=== PATIENT | female | born 1935 | race Caucasian/White ===

== ENCOUNTER 2022-06-29 23:36 | Inpatient (IN) | payer MEDICARE, MEDICAID ==
[~2022-06-29] VITALS: Ht 160 cm; Wt 68.5 kg
[~2022-06-29 23:36] MED LIST: AMLO5TAB4 MT; ASPI-1497 MT; AZIT500T8 MT; FURO-152 MT; LEVO25TA2 MT; OLME20TA22 MT
[2022-06-30 01:05] LABS: BASOPHILS % 0.4 % (0.0-2.0); EOSINOPHILS % 8.2 % (0.0-5.0); HEMATOCRIT. 30.5 % (36.0-48.0); HEMOGLOBIN. 10.1 g/dL (12.0-16.0); LYMPHOCYTES % 18.2 % (20.0-50.0); MEAN CORPUSCULAR VOLUME 90.9 fL (81.0-99.0); MEAN PLATELET VOLUME 6.7 fl (7.4-10.4); MONOCYTES % 8.7 % (2.0-8.0); NEUTROPHILS % 64.5 % (40.0-76.0); PLATELET 344 x1000/uL (130-400); RED BLOOD CELL COUNT 3.36 mill/uL (4.2-5.4); RED CELL DISTRIBUTION WIDTH 14.8 % (11.6-14.6)
[2022-06-30 01:09] LABS: CHLORIDE 97 mEq/L (98-107)
[2022-06-30] MEDS ORDERED: SODIUM CHLORIDE 0.9% 1,000 ML IV ONE (02:15)
[2022-06-30] MEDS ORDERED: PIPERACILLIN/TAZ 3.375G PREMIX 50 ML IV ONE (02:15)
[2022-06-30] MEDS ORDERED: VANCOMYCIN 1G PREMIX 200 ML IV ONE (02:15)
[2022-06-30] MEDS ORDERED: ONDANSETRON HCL 4MG/2ML INJ IV PRN (02:45)
[2022-06-30] MEDS ORDERED: CLONIDINE 0.1MG TABLET PO PRN (02:45)
[2022-06-30] MEDS ORDERED: GUAIFENESIN 200MG/10ML SUGAR FREE UDC PO PRN (02:45)
[2022-06-30] MEDS ORDERED: ACETAMINOPHEN 325MG TABLET PO PRN (02:45)
[2022-06-30] MEDS ORDERED: DEXT 5%/0.45% NACL 1000ML 1,000 ML IV SCH (02:45)
[2022-06-30] MEDS ORDERED: IOHEXOL-350 100 ML BOTTLE ONE (06:01)
[2022-06-30] MEDS: LEVOTHYROXINE SODIUM 25MCG TABLET PO SCH (06:30)
[2022-06-30] MEDS: OMEPRAZOLE 20MG CAPSULE EXTENDED RELEASE PO SCH (06:30)
[2022-06-30 08:32] LABS: CREATINE KINASE MB FRACTION 1.2 ng/mL (0.5-3.6)
[2022-06-30] MEDS ORDERED: IPRATROPIUM/ALBUTEROL 0.5-3(2.5)MG/3ML NEB HHN PRN (10:15)
[2022-06-30] MEDS ORDERED: GUAIFENESIN-DM 200MG-20MG/10ML UDC PO PRN (10:15)
[2022-06-30 10:30] VITALS: BP 141/72
[2022-06-30] MEDS: AMLODIPINE 5MG TABLET PO SCH (11:28)
[2022-06-30] MEDS: FUROSEMIDE 40MG/4ML VIAL IVP SCH (11:28)
[2022-06-30] MEDS: HYDRALAZINE HCL 25MG TABLET PO SCH ×3 (14:00→21:15)
[2022-06-30 16:00] VITALS: BP 146/60
[2022-06-30 17:26] LABS: CREATINE KINASE MB FRACTION 1.2 ng/mL (0.5-3.6)
[2022-06-30 20:00] VITALS: BP 148/63
[2022-06-30] MEDS: IPRATROPIUM/ALBUTEROL 0.5-3(2.5)MG/3ML NEB HHN SCH (20:27)
[2022-06-30] MEDS: BUDESONIDE 0.5MG/2ML NEB HHN SCH (20:27)
[2022-06-30] MEDS: ATORVASTATIN CALCIUM 20MG TABLET PO SCH (21:14)
[2022-07-01] VITALS: BP 126/44
[2022-07-01 04:00] VITALS: BP 119/51
[2022-07-01] MEDS: LEVOTHYROXINE SODIUM 25MCG TABLET PO SCH (05:54)
[2022-07-01] MEDS: OMEPRAZOLE 20MG CAPSULE EXTENDED RELEASE PO SCH (05:54)
[2022-07-01] MEDS: HYDRALAZINE HCL 25MG TABLET PO SCH ×3 (05:54→21:24)
[2022-07-01 06:49] LABS: BASOPHILS % 0.2 % (0.0-2.0); EOSINOPHILS % 5.9 % (0.0-5.0); HEMATOCRIT. 29.2 % (36.0-48.0); HEMOGLOBIN. 9.9 g/dL (12.0-16.0); LYMPHOCYTES % 10.7 % (20.0-50.0); MEAN CORPUSCULAR HEMOGLOBIN 30.6 pg (28.0-32.0); MEAN CORPUSCULAR VOLUME 90.7 fL (81.0-99.0); MEAN PLATELET VOLUME 6.8 fl (7.4-10.4); MONOCYTES % 10.1 % (2.0-8.0); NEUTROPHILS % 73.1 % (40.0-76.0); PLATELET 343 x1000/uL (130-400); RED BLOOD CELL COUNT 3.22 mill/uL (4.2-5.4); RED CELL DISTRIBUTION WIDTH 14.6 % (11.6-14.6)
[2022-07-01 07:33] LABS: PHOSPHORUS 4.4 mg/dL (2.5-4.9)
[2022-07-01 07:49] LABS: BG BASE EXCESS 10.8 mmol/L (-2.0-2.0); BG CARBOXYHEMOGLOBIN 0.3 % (0.5-1.5); BG DEOXYHEMOGLOBIN 5.8 % (0.0-5.0); BG METHEMOGLOBIN 0.3 % (0.0-1.5); BG OXYGEN SATURATION 94.2 % (92.0-98.5); BG OXYHEMOGLOBIN 93.6 % (94.0-97.0); BG PCO2 57.4 mmHg (35.0-45.0); BG PH 7.427 (7.350-7.450); BG PO2 73.5 mmHg (75.0-100.0); BG SAMPLE SITE RIGHT BRACHIAL; BG TOTAL HEMOGLOBIN 11.1 g/dL (12.0-18.0); BG VENT MODE NASAL CANNULA
[2022-07-01] MEDS: BUDESONIDE 0.5MG/2ML NEB HHN SCH ×2 (07:49→21:37)
[2022-07-01] MEDS: IPRATROPIUM/ALBUTEROL 0.5-3(2.5)MG/3ML NEB HHN SCH ×2 (07:50→21:37)
[2022-07-01 08:00] VITALS: BP 113/53
[2022-07-01] MEDS: FUROSEMIDE 40MG/4ML VIAL IVP SCH (09:11)
[2022-07-01] MEDS: AMLODIPINE 5MG TABLET PO SCH (09:11)
[2022-07-01 12:00] VITALS: BP 116/50
[2022-07-01 12:52] LABS: T4 FREE 0.9 ng/dL (0.76-1.46)
[2022-07-01 16:00] VITALS: BP 114/50
[2022-07-01 20:00] VITALS: BP 140/43
[2022-07-01] MEDS: ATORVASTATIN CALCIUM 20MG TABLET PO SCH (21:20)
[2022-07-02] VITALS: BP 112/40
[2022-07-02 04:00] VITALS: BP_SYST 120; BP_SYST 140; BP_DIAS 42; BP_DIAS 43
[2022-07-02] MEDS: LEVOTHYROXINE SODIUM 25MCG TABLET PO SCH (05:53)
[2022-07-02] MEDS: HYDRALAZINE HCL 25MG TABLET PO SCH ×3 (05:53→21:55)
[2022-07-02 08:00] VITALS: BP 101/68
[2022-07-02] MEDS: AMLODIPINE 5MG TABLET PO SCH (09:00)
[2022-07-02] MEDS: BUDESONIDE 0.5MG/2ML NEB HHN SCH ×2 (09:28→21:21)
[2022-07-02] MEDS: IPRATROPIUM/ALBUTEROL 0.5-3(2.5)MG/3ML NEB HHN SCH ×2 (09:28→21:21)
[2022-07-02] MEDS: FAMOTIDINE 20MG TABLET PO SCH (10:03)
[2022-07-02] MEDS: FUROSEMIDE 40MG/4ML VIAL IVP SCH (10:04)
[2022-07-02 12:00] VITALS: BP 140/53
[2022-07-02 16:00] VITALS: BP 96/41
[2022-07-02] MEDS ORDERED: FURO40TA5 MT ×2 (18:21→18:28)
[2022-07-02 18:33] VITALS: BP 96/41
[2022-07-02] MEDS: ATORVASTATIN CALCIUM 20MG TABLET PO SCH (20:58)
[2022-07-03] VITALS: BP 125/50
[2022-07-03 04:00] VITALS: BP 120/53
[2022-07-03] MEDS: LEVOTHYROXINE SODIUM 25MCG TABLET PO SCH (06:21)
[2022-07-03] MEDS: HYDRALAZINE HCL 25MG TABLET PO SCH (06:21)
[2022-07-03 08:00] VITALS: BP 122/65
[2022-07-03] MEDS: IPRATROPIUM/ALBUTEROL 0.5-3(2.5)MG/3ML NEB HHN SCH (08:06)
[2022-07-03] MEDS: BUDESONIDE 0.5MG/2ML NEB HHN SCH (08:07)
[2022-07-03] MEDS: FAMOTIDINE 20MG TABLET PO SCH (09:29)
[2022-07-03] MEDS: AMLODIPINE 5MG TABLET PO SCH (09:33)
[2022-07-03] MEDS: FUROSEMIDE 40MG/4ML VIAL IVP SCH (09:33)
== END 2022-07-03 12:15 | DRG 193 ==
LOC: ER 23:36 → MICUSO 06-30 02:30 → 7EST 06-30 11:01
PROVIDERS: ADMIT Internal Medicine Nephrology; ATTEND Internal Medicine Nephrology
DX: J18.9 Pneumonia, unspecified organism (principal); I50.31 Acute diastolic (congestive) heart failure; I13.0 Hypertensive heart and chronic kidney disease with heart failure and stage 1 through stage 4 chronic kidney disease, or unspecified chronic kidney disease; J44.0 Chronic obstructive pulmonary disease with (acute) lower respiratory infection; N18.9 Chronic kidney disease, unspecified; E78.5 Hyperlipidemia, unspecified; E03.9 Hypothyroidism, unspecified; Z20.822 Contact with and (suspected) exposure to COVID-19; I07.1 Rheumatic tricuspid insufficiency; Z28.310 Unvaccinated for COVID-19; Z79.01 Long term (current) use of anticoagulants; Z79.899 Other long term (current) drug therapy; Z86.16 Personal history of COVID-19; Z87.01 Personal history of pneumonia (recurrent); I25.2 Old myocardial infarction
CPT/HCPCS: 36415; 36600; 71045; 71275; 80048; 80053; 82375; 82550; 82553; 82805; 83605; 83735; 83880; 84100; 84145; 84439; 84443; 84481; 84484; 85025; 85379; 87426; 93005; 93970; 94640; 97162; 99285; C1893; J1940; J2543; J3370; J7030; J7626; Q9967